=== PATIENT | male | born 1990 | race Caucasian/White ===

== ENCOUNTER 2016-07-27 01:50 | Emergency (ER) | payer SELFPAY ==
[~2016-07-27 01:50] MED LIST: BACT800T5 PO; CEPH500C3 PO; IBUP-238 PO; VENTAER INH
--- NOTE | 2016-07-27 02:04 | PD ---
HPI Chief Complaint: ba Time Seen by Provider: 02:03 Travel History International Travel<30 days: No Contact w/Intl Traveler<30days: No Traveled to known affect area: No History of Present Illness HPI 26-year-old male is brought to the emergency department under a Michelle act for psychiatric evaluation. Patient reportedly recently had a breakup and was upset. He struck his head several times against a door at his residence. This was an attempt to harm himself. Denies suicidal or homicidal ideations. Denies any pain. She denies focal deficit or weakness. Denies any illegal drug use. Patient has no other symptoms to report. PFSH Past Medical History Hx Anticoagulant Therapy: No ADHD: Yes Asthma: Yes Blood Disorders: No Bipolar Disorder: Yes Anxiety: No Depression: Yes Cancer: No Cardiovascular Problems: No Chemotherapy: No Cerebrovascular Accident: No Diabetes: No Diminished Hearing: No Gastrointestinal Disorders: No Genitourinary: No Immune Disorder: No Implanted Vascular Access Dvce: No Musculoskeletal: No Neurologic: Yes Psychiatric: Yes (ADHD) Reproductive: No Respiratory: Yes (ASTHMA) Immunizations Current: No Seizures: No Thyroid Disease: No Ulcer: No PNEUMOCCOCAL Vaccine (Year): 2 Past Surgical History Eye Surgery: Yes Other Surgery: No Social History Alcohol Use: Yes (OCCASIONAL) Tobacco Use: Yes (1.5 PPD) Substance Use: Yes (HEROIN, IV ROXYCODONE) Allergies-Medications (Allergen,Severity, Reaction): Coded Allergies: Penicillin (Verified Allergy, Mild, Rash, 07/27/16) Reported Meds & Prescriptions Reported Meds & Active Scripts Active Reported Lamictal (Lamotrigine) 200 Mg Tab 400 Mg PO HS Adderall (Amphetamine-Dextroamphetamine) 20 Mg Tab 20 Mg PO DAILY Avoid late evening doses. Space doses at least 4 to 6 hours if more than once/day dosing. Xanax (Alprazolam) 2 Mg Tab 2 Mg PO Q8H PRN Review of Systems Except as stated in HPI: all other systems reviewed are Neg Physical Exam Narrative GENERAL: Well-nourished, well-developed patient, lethargic, arousable, in no acute distress SKIN: Focused skin assessment warm/dry. One and half centimeter superficial laceration on the mid forehead. Bleeding is controlled. Abrasions on the hands that appear to be healing. HEAD: Normocephalic. EYES: No scleral icterus. No injection or drainage. NECK: Supple, trachea midline. No JVD or lymphadenopathy. CARDIOVASCULAR: Regular rate and rhythm without murmurs, gallops, or rubs. RESPIRATORY: Breath sounds equal bilaterally. No accessory muscle use. GASTROINTESTINAL: Abdomen soft, non-tender, nondistended. MUSCULOSKELETAL: No cyanosis, or edema. BACK: Nontender without obvious deformity. No CVA tenderness. Data Data Last Documented VS Vital Signs Date Time Temp Pulse Resp B/P Pulse Ox O2 Delivery O2 Flow Rate FiO2 07/27/16 02:06 98.3 70 18 126/73 97 Orders Complete Blood Count With Diff (07/27/16 02:04) Comprehensive Metabolic Panel (07/27/16 02:04) Psych Screen (07/27/16 02:04) Drug Screen, Random Urine (07/27/16 02:04) Alcohol (Ethanol) (07/27/16 02:04) Ct Brain W/O Iv Contrast(Rout) (07/27/16 ) Labs Laboratory Tests Test 07/27/16 02:05 White Blood Count 10.3 TH/MM3 Red Blood Count 4.86 MIL/MM3 Hemoglobin 14.6 GM/DL Hematocrit 42.8 % Mean Corpuscular Volume 88.0 FL Mean Corpuscular Hemoglobin 30.0 PG Mean Corpuscular Hemoglobin 34.1 % Concent Red Cell Distribution Width 13.4 % Platelet Count 201 TH/MM3 Mean Platelet Volume 7.4 FL Neutrophils (%) (Auto) 59.6 % Lymphocytes (%) (Auto) 29.3 % Monocytes (%) (Auto) 9.4 % Eosinophils (%) (Auto) 1.4 % Basophils (%) (Auto) 0.3 % Neutrophils # (Auto) 6.1 TH/MM3 Lymphocytes # (Auto) 3.0 TH/MM3 Monocytes # (Auto) 1.0 TH/MM3 Eosinophils # (Auto) 0.1 TH/MM3 Basophils # (Auto) 0.0 TH/MM3 CBC Comment DIFF FINAL Differential Comment Sodium Level 141 MEQ/L Potassium Level 3.8 MEQ/L Chloride Level 107 MEQ/L Carbon Dioxide Level 28.0 MEQ/L Anion Gap 6 MEQ/L Blood Urea Nitrogen 15 MG/DL Creatinine 1.09 MG/DL Estimat Glomerular Filtration 81 ML/MIN Rate Random Glucose 87 MG/DL Calcium Level 9.4 MG/DL Total Bilirubin 0.7 MG/DL Aspartate Amino Transf 51 U/L (AST/SGOT) Alanine Aminotransferase 83 U/L (ALT/SGPT) Alkaline Phosphatase 88 U/L Total Protein 7.7 GM/DL Albumin 4.5 GM/DL Ethyl Alcohol Level LESS THAN 3 MG/DL MDM Medical Decision Making Medical Screen Exam Complete: Yes Emergency Medical Condition: Yes Medical Record Reviewed: Yes Differential Diagnosis Mood disorder versus personality disorder versus adjustment reaction disorder Narrative Course 26-year-old male presents to the emergency department under a Michelle act for psychiatric evaluation. Patient does have a laceration to the forehead with mild swelling surrounding it where he struck his head several times on the door. Patient denies suicidal homicidal ideations. CBC and CMP are without acute concern. EtOH is less than 3. Due to patient's alcohol level not being elevated and his lethargy and known head trauma, CT imaging is ordered. Pending no acute abnormality, patient is medically cleared to undergo psychiatric screening for further evaluation and disposition. Mental health screening discussed with the patient. Psychiatric screen ordered. Procedures Procedure Narrative LACERATION LOCATION: Forehead LENGTH 1.5 cm NUMBER OF STITCHES/FLAKITO: Dermabond skin adhesive REPAIR: The area of the laceration was prepped with Betadine and sterilely draped. The wound was copiously irrigated and explored without evidence of foreign body, tendon injury or neurovascular injury. The wound was closed using Dermabond skin adhesive. This was a single layer repair. A sterile dressing was applied. The patient was advised to keep the dressing clean and dry. Patient tolerated the procedure well. Diagnosis Primary Impression: Adjustment reaction Qualified Code: F43.25 - Adjustment disorder with mixed disturbance of emotions and conduct Additional Impressions: Forehead laceration Qualified Code: S01.81XA - Forehead laceration, initial encounter Head injury Qualified Code: S09.90XA - Head injury, initial encounter Condition: Stable Jeanette Bearden KILO July 27, 2016 02:04
[2016-07-27 02:06] VITALS: BP 126/73; PULSE 70; RESP 18; TEMP 98.3; O2SAT 97
[2016-07-27 02:25] LABS: AUTOMATED NEUTROPHIL # 6.1 TH/MM3 (1.8-7.7); BASOPHIL % 0.3 % (0.0-2.0); EOSINOPHIL # 0.1 TH/MM3 (0-0.4); EOSINOPHIL % 1.4 % (0.0-4.0); HEMATOCRIT 42.8 % (39.0-51.0); HEMO FLAGS DIFF FINAL; LYMPH % 29.3 % (9.0-44.0); MEAN CORPUSCULAR HGB CONC 34.1 % (32.0-36.0); MONO % 9.4 % (0.0-8.0); NEUT % 59.6 % (16.0-70.0); PLATELET COUNT 201 TH/MM3 (150-450); RED BLOOD COUNT 4.86 MIL/MM3 (4.50-5.90); RED CELL DISTRIBUTION WIDTH 13.4 % (11.6-17.2); WHITE BLOOD COUNT 10.3 TH/MM3 (4.0-11.0)
[2016-07-27] MEDS ORDERED: LAMI200T PO (02:32)
[2016-07-27] MEDS ORDERED: ADDE20 PO (02:32)
[2016-07-27] MEDS ORDERED: XANA2TAB2 PO (02:32)
[2016-07-27 02:37] LABS: ALT (GPT) 83 U/L (12-78); ANION GAP 6 MEQ/L (5-15); AST (GOT) 51 U/L (15-37); BLOOD UREA NITROGEN 15 MG/DL (7-18); CHLORIDE 107 MEQ/L (98-107); GLOMERULAR FILTRATION RATE 81 ML/MIN (>89); POTASSIUM 3.8 MEQ/L (3.5-5.1); SODIUM (NA) 141 MEQ/L (136-145)
[2016-07-27 02:39] LABS: ALKALINE PHOSPHATASE 88 U/L (45-117); TOTAL BILIRUBIN ADULT 0.7 MG/DL (0.2-1.0)
--- NOTE | 2016-07-27 04:22 | RADRPT ---
EXAM DATE/TIME: 07/27/2016 04:14 [facility] COMPARISON: No previous studies available for comparison. INDICATIONS : Altered mental status. Contusion on forehead. RADIATION DOSE: 40.54 CTDIvol (mGy) MEDICAL HISTORY : None SURGICAL HISTORY : None. ENCOUNTER: Initial ACUITY: 1 day PAIN SCALE: Non-responsive LOCATION: cranial TECHNIQUE: Multiple contiguous axial images were obtained of the head. Using automated exposure control and adj ustment of the mA and/or kV according to patient size, radiation dose was kept as low as reasonably a chievable to obtain optimal diagnostic quality images. FINDINGS: CEREBRUM: The ventricles are normal for age. No evidence of midline shift, mass lesion, hemorrhage or acute in farction. No extra-axial fluid collections are seen. POSTERIOR FOSSA: The cerebellum and brainstem are intact. The 4th ventricle is midline. The cerebellopontine angle i s unremarkable. EXTRACRANIAL: The visualized portion of the orbits is intact. SKULL: The calvaria is intact. No evidence of skull fracture. CONCLUSION: Negative trauma study. Josh Sheikh MD on July 27, 2016 at 4:20 Board Certified Radiologist. This report was verified electronically.
[2016-07-27 07:49] VITALS: BP 105/59; PULSE 64; RESP 14; O2SAT 95
[2016-07-27 12:21] VITALS: BP_SYST 110; PULSE 61; RESP 16; O2SAT 97
--- NOTE | 2016-07-28 12:17 | PD ---
History of Present Illness Chief Complaint: Psychiatric Symptoms Travel History International Travel<30 Days: No Contact w/Intl Traveler<30days: No Known affected area: No Legal Status Legal Status: Michelle Act Michelle Act Signed By: Elana Michelle Act Comment: Kemar repeatedly hit his head against a door History of Present Illness: This is a 26-year-old male who was seen by this physician on 07/27/2016. At that time he was not suicidal or homicidal or psychotic. His cognition was completely intact and he was verbally yuridia for safety. He admitted to becoming upset and banging his head. He states he did this inadvertently and again denies any suicidal ideation, plan or intent. He denies significant symptoms of depression. He denies symptoms of psychosis. He does not wish to be hospitalized and has a place to go. He states he is able to care for himself. PFSH Past Medical History Hx Anticoagulant Therapy: No ADHD: Yes Asthma: Yes Blood Disorders: No Bipolar Disorder: Yes Anxiety: No Depression: Yes Cancer: No Cardiovascular Problems: No Chemotherapy: No Cerebrovascular Accident: No Diabetes: No Diminished Hearing: No Gastrointestinal Disorders: No Genitourinary: No Immune Disorder: No Implanted Vascular Access Dvce: No Musculoskeletal: No Neurologic: Yes Psychiatric: Yes (ADHD) Reproductive: No Respiratory: Yes (ASTHMA) Immunizations Current: No Seizures: No Thyroid Disease: No Ulcer: No PNEUMOCCOCAL Vaccine (Year): 2 Past Surgical History Eye Surgery: Yes Other Surgery: No Psychiatric History Psychiatric History Hx Psychiatric Treatment: Pt. reports multiple admission for substance abuse History of Inpatient Treatment: Yes Social History Hx Alcohol Use: Yes (OCCASIONAL) Hx Tobacco Use: Yes (1.5 PPD) Hx Substance Use: Yes (HEROIN, IV ROXYCODONE) Substance Use Type: Marijuana, Nicotine/Cigarettes, Prescription Medications, Cocaine, Synth Opiates-Pain Pills Hx of Substance Use Treatment: No Allergies-Medications (Allergen,Severity, Reaction): Coded Allergies: Penicillin (Verified Allergy, Mild, Rash, 07/27/16) Reported Meds & Prescriptions Reported Meds & Active Scripts Active Reported Lamictal (Lamotrigine) 200 Mg Tab 400 Mg PO HS Adderall (Amphetamine-Dextroamphetamine) 20 Mg Tab 20 Mg PO DAILY Avoid late evening doses. Space doses at least 4 to 6 hours if more than once/day dosing. Xanax (Alprazolam) 2 Mg Tab 2 Mg PO Q8H PRN Review of Systems Except as stated in HPI: all other systems reviewed are Neg Exam Alert: Yes [place]: Person, Place, Date, Situation Mood: Calm Affect: Appropriate Speech: Clear, Logical Eye Contact: Normal Memory Intact: Immediate, Recent, Remote Insight/Judgement Adequate MDM Medical Decision Making Medical Record Reviewed: Yes Assessment/Plan This physician does not feel the patient meets criteria for involuntary hospitalization at this time. He is calm and pleasant and cooperative. He verbally contracts for safety. He would like to go home and has no suicidal or homicidal ideation. He is competent to make this decision. Results Vital Signs Date Time Temp Pulse Resp B/P Pulse Ox O2 Delivery O2 Flow Rate FiO2 07/27/16 12:21 61 16 110/ 97 Diagnosis Primary Impression: Adjustment disorder with mixed disturbance of emotions and conduct Departure Forms: Tests/Procedures Patient Instructions: General Instructions Disposition: 01 DISCHARGE HOME Condition: Stable Dileep Rivers MD July 28, 2016 12:17
== END 2016-07-27 12:30 | disposition home or self-care (01) ==
LOC: NEPD 01:50
DX: F43.25 Adjustment disorder with mixed disturbance of emotions and conduct (principal); S01.81XA Laceration without foreign body of other part of head, initial encounter; W22.09XA Striking against other stationary object, initial encounter; Y92.009 Unspecified place in unspecified non-institutional (private) residence as the place of occurrence of the external cause; Z79.899 Other long term (current) drug therapy
CPT/HCPCS: 12011; 70450; 80053; 80307; 85025

== ENCOUNTER 2017-06-29 15:44 | Emergency (ER) | payer SELFPAY ==
[~2017-06-29 15:44] MED LIST changes: +ADDE20 PO; -BACT800T5 PO; -CEPH500C3 PO; -IBUP-238 PO; +LAMI200T PO; -VENTAER INH; +XANA2TAB2 PO
[2017-06-29 15:53] VITALS: BP 115/77; PULSE 67; RESP 18; TEMP 98.4; O2SAT 98
--- NOTE | 2017-06-29 16:29 | PD ---
HPI . Unresponsive Chief Complaint: Medical Clearance Time Seen by Provider: 16:07 Travel History International Travel<30 days: No Contact w/Intl Traveler<30days: No Traveled to known affect area: No History of Present Illness HPI This patient was found asleep at a gas station. EVAC tried to arouse him without success. He was then brought to us. The nurses report that he did talk to them. He told him that he did not want to be here. He admitted to marijuana use. He then fell asleep. I have not been able to talk to him because he is asleep and will not arouse to talk to me. However, I am assured by the nursing staff that he presented neurologically intact. His medical records indicate a history of alcohol, heroin and oxycodone use as well as marijuana, cocaine and synthetic opiates. PFSH Past Medical History Hx Anticoagulant Therapy: No ADHD: Yes Asthma: Yes Blood Disorders: No Bipolar Disorder: Yes Anxiety: No Depression: Yes Cancer: No Cardiovascular Problems: No Chemotherapy: No Cerebrovascular Accident: No Diabetes: No Diminished Hearing: No Gastrointestinal Disorders: No Genitourinary: No Immune Disorder: No Implanted Vascular Access Dvce: No Musculoskeletal: No Neurologic: Yes Psychiatric: Yes (ADHD) Reproductive: No Respiratory: Yes (ASTHMA) Immunizations Current: No Seizures: No Thyroid Disease: No Ulcer: No PNEUMOCCOCAL Vaccine (Year): 2 Past Surgical History Eye Surgery: Yes Other Surgery: No Social History Alcohol Use: No (DENIES) Tobacco Use: Yes (1.5 PPD) Substance Use: No (HEROIN, IV ROXYCODONE-DENIES/ MARIJUANA) Allergies-Medications (Allergen,Severity, Reaction): Coded Allergies: penicillin G (Unverified Allergy, Mild, Rash, 10/24/16) Reported Meds & Prescriptions Reported Meds & Active Scripts Active Reported Lamictal (Lamotrigine) 200 Mg Tab 400 Mg PO HS Adderall (Amphetamine-Dextroamphetamine) 20 Mg Tab 20 Mg PO DAILY Avoid late evening doses. Space doses at least 4 to 6 hours if more than once/day dosing. Xanax (Alprazolam) 2 Mg Tab 2 Mg PO Q8H PRN Review of Systems ROS Limitations: Intoxication Physical Exam Narrative GENERAL: Currently sound asleep. He will barely open his eyes to verbal and tactile stimuli. SKIN: Warm and dry. HEAD: Normocephalic/atraumatic. EYES: Pupils are equal. Extraocular movements are intact. ENT: Mucous membranes are moist. NECK: Normal range of motion. CARDIOVASCULAR: Regular rate and rhythm. RESPIRATORY: Nonlabored respirations. MUSCULOSKELETAL: Atraumatic. NEUROLOGICAL: Nonfocal. PSYCHIATRIC: Unable to assess. Data Data Last Documented VS Vital Signs Date Time Temp Pulse Resp B/P (MAP) Pulse Ox O2 Delivery O2 Flow Rate FiO2 06/29/17 15:56 67 18 06/29/17 15:53 98.4 115/77 (90) 98 MDM Medical Decision Making Medical Screen Exam Complete: Yes Emergency Medical Condition: Yes Differential Diagnosis Differential diagnosis of altered mental status includes but is not limited to infection, electrolyte abnormality, neurological event, intoxication Narrative Course This patient was brought to us by EVAC after being found asleep at a gas station. He does not have any signs of injury and was verbal with the nursing staff although he is not verbal with me. We do not suspect injury or acute medical problem. He will be allowed to sleep it off. Diagnosis Primary Impression: Sedative intoxication Qualified Codes: F13.920 - Sedative, hypnotic or anxiolytic use, unspecified with intoxication, uncomplicated Condition: Stable Vidya Nguyen MD Jun 29, 2017 16:29
[2017-06-29 17:31] VITALS: BP 112/57; PULSE 68; RESP 14; O2SAT 99
[2017-06-29 18:32] VITALS: BP 114/71; PULSE 61; RESP 18; O2SAT 95
[2017-06-29 19:28] VITALS: BP 104/57; PULSE 66; RESP 15; O2SAT 99
[2017-06-29 22:28] VITALS: BP 119/59
== END 2017-06-29 22:56 | disposition home or self-care (01) ==
LOC: NEPD 15:44 → NEDAMB 22:56
DX: F13.920 Sedative, hypnotic or anxiolytic use, unspecified with intoxication, uncomplicated (principal); F12.90 Cannabis use, unspecified, uncomplicated; F17.200 Nicotine dependence, unspecified, uncomplicated; F90.9 Attention-deficit hyperactivity disorder, unspecified type
CPT/HCPCS: 99282